=== PATIENT | female | born 1970 | race Caucasian/White ===

== ENCOUNTER 2017-12-17 16:27 | Inpatient (IN) ==
[~2017-12-17 16:27] MED LIST: Lidocaine PF 1% Inj 5 ML Syringe INFILTRATN ONE; Phenylephrine/NS 1000 MCG/10ML Syringe IV.PUSH ONE; Sodium Chlor 0.9% Inj 1,000 ML IV.SIG ONE; Succinylcholine Inj 100 MG/5 ML Syringe IV.PUSH ONE
[2017-12-17] MEDS ORDERED: Morphine Inj 4 MG/ML Vial IV.PUSH ONE (16:38)
[2017-12-17] MEDS ORDERED: Sod Chloride 0.9% Inj 1,000 ML IV.SIG ONE ×2 (16:44→17:40)
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
--- NOTE | 2017-12-17 17:08 | XR ---
EXAM DATE: 12/17/2017 5:00 PM EDT AGE/SEX: 47 years / Female INDICATIONS: Left side chest and back pain after falling today. CLINICAL DATA: This is the patient's initial encounter. Patient reports that signs and symptoms have been present for 1 day and indicates a pain score of 5/10. MEDICAL/SURGICAL HISTORY: None. Fusion, cervical. COMPARISON: . FINDINGS: No infiltrate, effusion or pneumothorax demonstrated. Cardiomediastinal silhouette within normal limi ts. Multiple mildly displaced left lower rib fractures CONCLUSION: Fractured left ribs. No pneumothorax or other acute cardiopulmonary disease demonstrated. Electronically signed by: Nicholas Boudreaux MD 12/17/2017 5:07 PM EDT
[2017-12-17 17:21] LABS: Baso # (Auto) 0.1 th/mm3 (0.0-0.2); Baso % (Auto) 0.4 % (0.0-2.0); Hematocrit 35.1 % (35.0-46.0); Hemoglobin 12.4 gm/dL (11.6-15.3); Lymph # (Auto) 2.3 th/mm3 (1.0-4.8); Lymph % (Auto) 16.8 % (9.0-44.0); Mean Corpuscular HGB Conc 35.4 % (32.0-36.0); Mean Corpuscular Hemoglobin 32.8 pg (27.0-34.0); Mean Corpuscular Volume 92.7 fL (80.0-100.0); Mean Platelet Volume 8.2 fL (7.0-11.0); Mono # (Auto) 0.7 th/mm3 (0.0-0.9); Mono % (Auto) 5.3 % (0.0-8.0); Neut # (Auto) 10.8 th/mm3 (1.8-7.7); Neut % (Auto) 77.5 % (16.0-70.0); Platelet Count 230 th/mm3 (150-450); Red Blood Count 3.79 mil/mm3 (4.00-5.30); Red Cell Distribution Width 13.4 % (11.6-17.2); White Blood Count 13.9 th/mm3 (4.0-11.0)
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
[2017-12-17 17:44] LABS: Activated Partial Thrombo Time 20.3 sec (24.3-30.1); Prothrombin Time 10.1 sec (9.8-11.6)
[2017-12-17] MEDS ORDERED: Etomidate Inj 20 MG/10 ML Ampul IV.PUSH ONE (17:51)
[2017-12-17] MEDS ORDERED: Ketamine Inj 50 MG/5 ML Syringe IV.PUSH ONE (17:52)
[2017-12-17 17:54] LABS: Albumin 3.3 g/dL (3.4-5.0); Anion Gap 9 meq/L (5-15); Aspartate Aminotransferase 30 U/L (15-37); Blood Urea Nitrogen 16 mg/dL (7-18); Calcium 8.3 mg/dL (8.5-10.1); Carbon Dioxide 24.2 meq/L (21.0-32.0); Chloride 107 meq/L (98-107); Glomerular Filtration Rate 50 mL/min (>89); Glucose,Random 167 mg/dL (74-106); Potassium 3.9 meq/L (3.5-5.1); Sodium 140 meq/L (136-145)
[2017-12-17 17:58] LABS: Alanine Aminotransferase 27 U/L (10-53); Alkaline Phosphatase 69 U/L (45-117); Total Protein 6.3 g/dL (6.4-8.2)
[2017-12-17] MEDS ORDERED: Sodium Chlor 0.9% Inj 250 ML IV.SIG SCH (18:00)
[2017-12-17] MEDS ORDERED: Heparin - SQ 10,000 UNITS/ML Vial ONE (18:12)
[2017-12-17] MEDS ORDERED: fentaNYL Citrate Inj 100 MCG/2 ML Ampul ONE (19:15)
--- NOTE | 2017-12-17 19:26 | XR ---
EXAM DATE: 12/17/2017 7:22 PM EDT AGE/SEX: 47 years / Female INDICATIONS: Instrument count only. Patient still on OR table. CLINICAL DATA: This is the patient's subsequent encounter. Patient reports that signs and symptoms h ave been present for 1 day and indicates a pain score of Nonresponsive. MEDICAL/SURGICAL HISTORY: Non-responsive. Non-responsive. COMPARISON: No prior exams available for comparison. FINDINGS: Splenectomy changes are noted. There is a surgical drain and a couple vascular clips in the left upp er quadrant. Midline laparotomy getachew are present. There is a nasogastric tube with tip in the uppe r stomach. No unexpected radiopaque body demonstrated. CONCLUSION: Splenectomy changes as above without evidence of an acute complication. No unexpected foreign body. Electronically signed by: Nicholas Boudreaux MD 12/17/2017 7:25 PM EDT
[2017-12-17] MEDS ORDERED: Naloxone Inj 0.4 MG/ML Vial IV.PUSH PRN (19:31)
[2017-12-17] MEDS ORDERED: Bisacodyl 10 MG Supp RECTAL PRN (19:31)
[2017-12-17] MEDS ORDERED: Post-op Orders (for Pharmacy) OTHER ONE (19:31)
[2017-12-17] MEDS ORDERED: ceFAZolin Inj 1,000 MG in Sodium Chlor 0.9% Inj 100 ML IV.SIG SCH (20:00)
[2017-12-17] MEDS: Propofol 1000 mg/100 ml Inj 1,000 MG/100 ML BOTTLE IV.CONT PRN (20:24)
[2017-12-17] MEDS: Sod Chloride 0.9% Inj 1,000 ML IV.CONT SCH (20:25)
[2017-12-17] MEDS: fentaNYL 10 mcg/mL Premix Drip 2,500 MCG/250 ML BAG IV.SIG PRN (20:25)
--- NOTE | 2017-12-17 20:47 | XR ---
EXAM DATE: 12/17/2017 8:38 PM EDT AGE/SEX: 47 years / Female INDICATIONS: Post ET tube placement. CLINICAL DATA: This is the patient's subsequent encounter. Patient reports that signs and symptoms h ave been present for 1 day and indicates a pain score of Nonresponsive. MEDICAL/SURGICAL HISTORY: Non-responsive. Fusion, cervical. COMPARISON: [facility] [place], CHEST 1V SINGLE AP, 12/17/2017. . FINDINGS: Patient has had a midline laparotomy in the interim and splenectomy. Very small left pleural effusion present. No pneumothorax seen. Heart size stable, within normal limits. Endotracheal tube tip is approximately 3.7 cm above the ernesto. There is a nasogastric tube with tip in the mid to lower esophagus, well above the GE junction. CONCLUSION: 1. Small left pleural effusion. 2. No pneumothorax. 3. Appropriately positioned endotracheal tube. 4. Endotracheal tube tip is in the mid to distal esophagus. Electronically signed by: Nicholas Boudreaux MD 12/17/2017 8:46 PM EDT
[2017-12-17] MEDS: Senna/Docusate Sodium 8.6/50 MG Tablet PO SCH (22:19)
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
[2017-12-17 22:56] LABS: ABG Base Excess -2.8 mmol/L (-2-2); ABG PCO2 49 mmHg (38-42); ABG PO2 241 mmHg (61-120)
[2017-12-18] MEDS: Propofol 1000 mg/100 ml Inj 1,000 MG/100 ML BOTTLE IV.CONT PRN ×2 (01:31→06:36)
[2017-12-18] MEDS: Sod Chloride 0.9% Inj 1,000 ML IV.CONT SCH ×2 (03:01→13:10)
[2017-12-18 06:10] LABS: Albumin 2.4 g/dL (3.4-5.0); Calcium 6.6 mg/dL (8.5-10.1); Carbon Dioxide 22.4 meq/L (21.0-32.0); Potassium 4.1 meq/L (3.5-5.1); Total Protein 4.9 g/dL (6.4-8.2)
[2017-12-18] MEDS: fentaNYL 10 mcg/mL Premix Drip 2,500 MCG/250 ML BAG IV.SIG PRN (06:38)
[2017-12-18] MEDS ORDERED: Chlorhexidine 0.12% Oral Kit 15 ML UDC OROPHARYNG SCH (08:00)
[2017-12-18 09:16] LABS: ABG Base Excess -1.7 mmol/L (-2-2); ABG PCO2 37 mmHg (38-42); ABG PO2 167 mmHg (61-120)
[2017-12-18] MEDS: Senna/Docusate Sodium 8.6/50 MG Tablet PO SCH ×2 (09:26→11:24)
[2017-12-18] MEDS: Pantoprazole Inj 40 MG Vial IV.PUSH SCH (09:27)
[2017-12-18] MEDS ORDERED: Oral Hygiene Kit OROPHARYNG SCH (12:00)
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
[2017-12-18] MEDS: Morphine Inj 4 MG/ML Vial IV.PUSH PRN ×3 (16:43→23:07)
[2017-12-19] MEDS: Morphine Inj 4 MG/ML Vial IV.PUSH PRN ×7 (01:56→20:48)
[2017-12-19] MEDS: Sod Chloride 0.9% Inj 1,000 ML IV.CONT SCH ×3 (01:56→18:47)
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
[2017-12-19 06:13] LABS: Baso % (Auto) 0.2 % (0.0-2.0); Hematocrit 31.7 % (35.0-46.0); Lymph # (Auto) 1.5 th/mm3 (1.0-4.8); Lymph % (Auto) 10.3 % (9.0-44.0); Mean Corpuscular HGB Conc 34.6 % (32.0-36.0); Mean Corpuscular Hemoglobin 33.1 pg (27.0-34.0); Mean Corpuscular Volume 95.7 fL (80.0-100.0); Mean Platelet Volume 8.5 fL (7.0-11.0); Mono # (Auto) 1.3 th/mm3 (0.0-0.9); Mono % (Auto) 8.8 % (0.0-8.0); Neut # (Auto) 11.4 th/mm3 (1.8-7.7); Neut % (Auto) 80.7 % (16.0-70.0); Platelet Count 121 th/mm3 (150-450); Red Blood Count 3.32 mil/mm3 (4.00-5.30); Red Cell Distribution Width 13.8 % (11.6-17.2); White Blood Count 14.2 th/mm3 (4.0-11.0)
[2017-12-19 06:15] LABS: Alanine Aminotransferase 41 U/L (10-53); Albumin 2.3 g/dL (3.4-5.0); Alkaline Phosphatase 57 U/L (45-117); Anion Gap 9 meq/L (5-15); Aspartate Aminotransferase 42 U/L (15-37); Blood Urea Nitrogen 6 mg/dL (7-18); Calcium 7.4 mg/dL (8.5-10.1); Carbon Dioxide 22.9 meq/L (21.0-32.0); Chloride 109 meq/L (98-107); Glomerular Filtration Rate Greater Than 89 mL/min (>89); Glucose,Random 84 mg/dL (74-106); Potassium 3.6 meq/L (3.5-5.1); Sodium 141 meq/L (136-145); Total Protein 5.2 g/dL (6.4-8.2)
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
[2017-12-19] MEDS: Pantoprazole Inj 40 MG Vial IV.PUSH SCH (08:39)
[2017-12-19] MEDS: Enoxaparin Inj 40 MG/0.4 ML Syringe SQ SCH (10:56)
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
[2017-12-20] MEDS: Morphine Inj 4 MG/ML Vial IV.PUSH PRN ×7 (00:14→21:53)
[2017-12-20] MEDS: Pantoprazole Inj 40 MG Vial IV.PUSH SCH (09:19)
[2017-12-20] MEDS: Enoxaparin Inj 40 MG/0.4 ML Syringe SQ SCH (09:19)
[2017-12-20 09:32] LABS: Baso # (Auto) 0.1 th/mm3 (0.0-0.2); Baso % (Auto) 0.4 % (0.0-2.0); Hematocrit 30.8 % (35.0-46.0); Hemoglobin 10.7 gm/dL (11.6-15.3); Lymph # (Auto) 1.4 th/mm3 (1.0-4.8); Mean Corpuscular HGB Conc 34.9 % (32.0-36.0); Mean Corpuscular Hemoglobin 32.1 pg (27.0-34.0); Mean Corpuscular Volume 92.2 fL (80.0-100.0); Mean Platelet Volume 8.1 fL (7.0-11.0); Mono # (Auto) 1.2 th/mm3 (0.0-0.9); Mono % (Auto) 9.1 % (0.0-8.0); Neut # (Auto) 10.4 th/mm3 (1.8-7.7); Neut % (Auto) 79.5 % (16.0-70.0); Platelet Count 177 th/mm3 (150-450); Red Blood Count 3.34 mil/mm3 (4.00-5.30); Red Cell Distribution Width 13.3 % (11.6-17.2)
[2017-12-20 09:41] LABS: Albumin 2.1 g/dL (3.4-5.0); Anion Gap 9 meq/L (5-15); Aspartate Aminotransferase 34 U/L (15-37); Blood Urea Nitrogen 5 mg/dL (7-18); Calcium 7.8 mg/dL (8.5-10.1); Carbon Dioxide 24.3 meq/L (21.0-32.0); Chloride 106 meq/L (98-107); Glomerular Filtration Rate Greater Than 89 mL/min (>89); Glucose,Random 65 mg/dL (74-106); Lipase 138 U/L (73-393); Potassium 3.7 meq/L (3.5-5.1); Sodium 139 meq/L (136-145)
[2017-12-20 09:42] LABS: Alanine Aminotransferase 29 U/L (10-53)
[2017-12-20 09:44] LABS: Alkaline Phosphatase 59 U/L (45-117); Total Protein 5.4 g/dL (6.4-8.2)
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
[2017-12-20] MEDS: Lidocaine 5% Patch T-DERMAL SCH (13:00)
[2017-12-20] MEDS: Sod Chloride 0.9% Inj 1,000 ML IV.CONT SCH (13:34)
[2017-12-21] MEDS: Morphine Inj 4 MG/ML Vial IV.PUSH PRN ×5 (01:59→22:21)
[2017-12-21 04:41] LABS: Baso # (Auto) 0.1 th/mm3 (0.0-0.2); Baso % (Auto) 0.7 % (0.0-2.0); Eos % (Auto) 0.1 % (0.0-4.0); Hematocrit 32.6 % (35.0-46.0); Hemoglobin 11.2 gm/dL (11.6-15.3); Lymph # (Auto) 1.5 th/mm3 (1.0-4.8); Lymph % (Auto) 18.9 % (9.0-44.0); Mean Corpuscular HGB Conc 34.3 % (32.0-36.0); Mean Corpuscular Hemoglobin 32.3 pg (27.0-34.0); Mean Corpuscular Volume 94.1 fL (80.0-100.0); Mono # (Auto) 0.8 th/mm3 (0.0-0.9); Mono % (Auto) 10.4 % (0.0-8.0); Neut # (Auto) 5.6 th/mm3 (1.8-7.7); Neut % (Auto) 69.9 % (16.0-70.0); Platelet Count 250 th/mm3 (150-450); Red Blood Count 3.46 mil/mm3 (4.00-5.30); Red Cell Distribution Width 13.3 % (11.6-17.2); White Blood Count 8.1 th/mm3 (4.0-11.0)
[2017-12-21] MEDS: Sod Chloride 0.9% Inj 1,000 ML IV.CONT SCH (05:36)
[2017-12-21] MEDS: Enoxaparin Inj 40 MG/0.4 ML Syringe SQ SCH (08:18)
[2017-12-21] MEDS: Pantoprazole Inj 40 MG Vial IV.PUSH SCH (08:18)
[2017-12-21] MEDS: Lidocaine 5% Patch T-DERMAL SCH (10:18)
[2017-12-21] MEDS: Senna/Docusate Sodium 8.6/50 MG Tablet PO SCH ×2 (10:21→20:16)
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
[2017-12-22] MEDS: Sod Chloride 0.9% Inj 1,000 ML IV.CONT SCH (01:57)
[2017-12-22] MEDS: Morphine Inj 4 MG/ML Vial IV.PUSH PRN ×4 (02:24→16:06)
[2017-12-22] MEDS: Senna/Docusate Sodium 8.6/50 MG Tablet PO SCH ×2 (08:39→21:20)
[2017-12-22] MEDS: Lidocaine 5% Patch T-DERMAL SCH (08:39)
[2017-12-22] MEDS: Enoxaparin Inj 40 MG/0.4 ML Syringe SQ SCH (08:39)
[2017-12-22] MEDS: oxyCODONE/Acetaminophen 10/325 Tablet PO PRN ×4 (08:40→21:18)
[2017-12-22] MEDS ORDERED: Pneumococcal-13 Valent Ped Vacc Inj 0.5 ML Syringe IM ONE (11:07)
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
[2017-12-23] MEDS: oxyCODONE/Acetaminophen 10/325 Tablet PO PRN ×3 (01:18→09:29)
[2017-12-23] MEDS: Lidocaine 5% Patch T-DERMAL SCH (09:30)
[2017-12-23] MEDS: Senna/Docusate Sodium 8.6/50 MG Tablet PO SCH (09:31)
[2017-12-23] MEDS: Enoxaparin Inj 40 MG/0.4 ML Syringe SQ SCH (09:31)
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
== END 2017-12-23 11:37 | disposition home or self-care (01) ==
LOC: NEPE 16:27 → N03 18:00 → NEDA 18:23 → N03 18:28 → N07 12-19 19:19
PROVIDERS: ADMIT Surgery; ATTEND Surgery
PROC: SPLCTMY (ICD-10-PCS; 2017-12-17 17:56)